=== PATIENT | male | born 1950 | race Caucasian/White ===

== ENCOUNTER 2016-04-08 14:11 | Outpatient (RCR) | payer BC | END 2016-04-30 | disposition home or self-care (01) | LOC: WCC 14:11 | DX: L97.122 Non-pressure chronic ulcer of left thigh with fat layer exposed (principal); C25.3 Malignant neoplasm of pancreatic duct; C78.7 Secondary malignant neoplasm of liver and intrahepatic bile duct; Z86.711 Personal history of pulmonary embolism | CPT/HCPCS: 11042; G0463 ==